=== PATIENT | male | born 1980 | race Caucasian/White ===

== ENCOUNTER 2019-12-27 11:40 | Emergency (ER) | payer OTHER, SELFPAY ==
--- NOTE | 2019-12-27 11:53 | ED.URI ---
HPI - URI/Sore Throat General Chief Complaint: Upper Respiratory Infection Stated Complaint: cough/fever Time Seen by Provider: 12/27/19 11:54 Source: patient and RN notes reviewed History of Present Illness HPI Narrative: Patient is a 39-year-old male that presents the urgent care with complaints of sore throat, nonproductive cough, fever, chills, body aches, fatigue. Patient states that it started yesterday and he was at his PCPs office for an annual visit. Patient states that did not test him for strep or flu but treated him with amoxicillin. Patient states he is only taken 1 dose but feels worse this morning. Patient is also been taking [id number] Advil. No other acute complaints. No acute distress noted. Patient read the plan of care. Related Data Home Medications Medication Instructions Recorded Confirmed atorvastatin 20 mg DAILY 12/27/19 12/27/19 citalopram 20 mg DAILY 12/27/19 12/27/19 hydrochlorothiazide 25 mg DAILY 12/27/19 12/27/19 losartan 100 mg DAILY 12/27/19 12/27/19 Allergies Allergy/AdvReac Type Severity Reaction Status Date / Time No Known Allergies Allergy Verified 12/27/19 12:00 Review of Systems Review of Systems: Narrative: CONSTITUTIONAL: Reports of fever, chills, sweats and fatigue EYES: Denies visual changes, redness, or discharge. ENT: Reports of rhinorrhea, sore throat CARDIOVASCULAR: Denies chest pain, palpitations, or edema. RESPIRATORY: Reports a mild nonproductive cough GASTROINTESTINAL: Denies abdominal pain, nausea, vomiting, or diarrhea. GENITOURINARY: Denies dysuria or hematuria. SKIN: Denies rash or itching. MUSCULOSKELETAL: Denies back pain, joint pain; reports of body aches NEUROLOGIC: Denies headache, numbness, or weakness. All other systems reviewed are negative, except as documented in HPI. PMFSH Social History Social History Gender identity (if verbalized by the patient): Male Comments At the time of my signature, I reviewed and agree with the nursing past medical, surgical, social, and family history. There is no relevant family history pertinent to the patient complaint. Exam Narrative: Exam Narrative: GENERAL: This is a well-nourished, well-developed patient, appears fatigued HEAD: normocephalic, atraumatic. EYES: PERRL. Sclera clear/white. Vision is grossly intact. EARS: External ears normal, auditory canals clear and without drainage, TMs normal without perforation. Hearing grossly intact. NOSE: External nose normal with no obvious nasal discharge, bilateral erythemic nares with clear rhinorrhea THROAT: Mucous membranes moist, posterior pharynx clear. Moderate postnasal drainage NECK: Neck supple, non-tender without lymphadenopathy CARDIOVASCULAR: Regular rate and rhythm without murmurs, gallops, or rubs. RESPIRATORY: Clear to auscultation. Breath sounds equal bilaterally. No wheezes, rales, or rhonchi. SKIN: warm, intact with no suspicious lesions or rash, good texture and turgor. NEURO: awake, alert, and oriented to person, place and time. There were no obvious focal neurologic abnormalities. EXTREMITIES: No clubbing, cyanosis, or edema. Course Vital Signs Vital signs: Vital Signs Temperature 101.4 F H 12/27/19 11:58 Pulse Rate 111 H 12/27/19 11:58 Respiratory Rate 20 12/27/19 11:58 Blood Pressure 160/93 H 12/27/19 11:58 Pulse Oximetry 98 12/27/19 11:58 Temperature 101.4 F H 12/27/19 11:58 Pulse Rate 111 H 12/27/19 11:58 Respiratory Rate 20 12/27/19 11:58 Blood Pressure 160/93 H 12/27/19 11:58 Pulse Oximetry 98 12/27/19 11:58 Reviewed?patient is informed that they may have pre-hypertension or hypertension based on a blood pressure reading in the department. I recommend the patient call the primary care provider listed on their discharge instructions or a physician of their choice this week to arrange follow-up for further evaluation of possible pre-hypertension or hypertension. MDM - URI/Sore Throat MDM Narrative
[2019-12-27 11:58] VITALS: BP 160/93; PULSE 111; RESP 20; TEMP 38.6; O2SAT 98
== END 2019-12-27 12:12 | disposition home or self-care (01) ==
PROVIDERS: Emergency Provider Nurse Practitioner Family
DX: J11.1 Influenza due to unidentified influenza virus with other respiratory manifestations (principal); I10 Essential (primary) hypertension; E78.00 Pure hypercholesterolemia, unspecified; I25.10 Atherosclerotic heart disease of native coronary artery without angina pectoris
CPT/HCPCS: 87081; 87804; 87880; 99203; G0463

== ENCOUNTER 2024-12-21 01:04 | Emergency (ER) | payer OTHER, SELFPAY ==
[2024-12-21] VITALS (20 sets, daily range): BP systolic 128–167; BP diastolic 83–94; PULSE 103–132; RESP 17–30; TEMP 36.5; O2SAT 97–100
[2024-12-21 01:26] LABS: Basophils Absolute Auto 0.1 K/mm3 (0.0-0.1); Eosinophils Absolute Auto 0.5 K/mm3 (0-0.3); Eosinophils Percent Auto 3.9 % (0-4.4); Hematocrit 41.4 % (42.0-52.0); Hemoglobin 14.1 g/dL (14.0-18.0); Immature Granulocyte Absolute 0.07 K/mm3 (0.00-0.031); Immature Granulocyte Percent A 0.6 % (0-0.5); Lymphocytes Absolute Auto 4.55 K/mm3 (0.9-3.2); Lymphocytes Percent Auto 38.2 % (18.3-44.2); Mean Corpuscular HGB Conc 34.1 g/dl (32-36); Mean Corpuscular Hemoglobin 25.7 pg (26-34); Mean Corpuscular Volume 75.5 fl (80-100); Mean Platelet Volume 9.9 fl (7.4-10.4); Monocytes Absolute Auto 1.1 K/mm3 (0.1-0.6); Monocytes Percent Auto 9.5 % (2.6-8.5); Neutrophils Absolute Auto 5.6 K/mm3 (1.3-6.7); Neutrophils Percent Auto 46.8 % (45.5-73.1); Platelet Count Result 353 k/mm3 (150-375); Red Blood Count 5.48 M/mm3 (4.6-6.20); Red Cell Distribution Width 13.5 % (11.5-14.5); White Blood Count 11.9 K/mm3 (4.5-10.0)
[2024-12-21 01:33] LABS: Alanine Aminotransferase 19 U/L (6-50); Albumin Level 4.3 g/dL (3.5-5.1); Alkaline Phosphatase 78 U/L (38-126); Anion Gap 12 mmol/L (4-12); Aspartate Amino Transferase 23 U/L (17-59); Bilirubin,Total 0.6 mg/dL (0.2-1.3); Blood Urea Nitrogen 25 mg/dL (9-20); Calcium 8.9 mg/dL (8.4-10.2); Carbon Dioxide 26 mmol/L (22-30); Chloride 98 mmol/L (98-107); Estimated CRCL calculation 94 ml/min; Estimated Glomerular Filt Rate > 60; Glucose 167 mg/dL (65-110); Potassium 2.6 mmol/L (3.4-5.0); Sodium 136 mmol/L (137-145)
[2024-12-21 01:49] LABS: INR 0.9; Prothrombin Time 12.3 Seconds (11.1-14.7)
[2024-12-21] MEDS: POTASSIUM CHLORIDE 20 MEQ PACKET (FOR LIQUID) 40 MEQ PO (02:00)
[2024-12-21] MEDS: SODIUM CHLORIDE 0.9% IV 1,000 ML 999 ML IV CONT ×2 (02:00→03:23)
[2024-12-21 03:33] LABS: Add Urine Microscopic? YES; Appearance Urine Clear (Clear); Bacteria Urine None Seen /hpf; Bilirubin Urine Negative (Negative); Blood Urine Negative (Negative); Color Urine Yellow (Yellow); Glucose Urine UA Negative (Negative); Ketones Urine Trace mg/dL (Negative); Leukocyte Esterase Ur Negative LEU/UL (Negative); Nitrate Urine Negative (Negative); Non Pathogenic Casts 0-2; Protein Urine 1+ mg/dL (Negative); Squamous Epithelial Cell Urine None Seen /hpf (Few); WBC Urine 0-5 /hpf (0-3)
[2024-12-21 03:45] LABS: Amphetamine Screen Urine Negative (Negative); Barbiturate Screen Urine Negative (Negative); Benzodiazepines Screen Urine Negative (Negative); Cannabinoid Screen Urine Positive (Negative); Cocaine Screen Urine Negative (Negative); Methadone Screen Urine Negative (Negative); Opiate Screen Urine Negative (Negative); Phencyclidine Screen Urine Negative (Negative)
--- NOTE | 2024-12-21 03:51 | ED.GENADULT ---
HPI - General Adult General Chief complaint: Altered Mental Status Stated complaint: Intermittent LOC Time Seen by Provider: 12/21/24 01:28 History of Present Illness HPI narrative: Patient is a 44-year-old male who presents to the emergency department this evening via EMS with the complaint of not feeling right. Patient states that he was getting ready to go to sleep but then did not feel well so he decided to come to the ED for further evaluation. Patient is unable to provide me with any specific symptoms, he just states that he started Wellbutrin 3 weeks ago and every day he does feels different. Patient admits that he has been vaping using the marijuana vape and did use it this evening. He is answering all my questions appropriately and following all of my commands, alert and oriented x3. Related Data Home Medications ?Medication ?Instructions ?Recorded ?Confirmed ?Last Taken ?Type esomeprazole magnesium 20 mg 20 mg PO DAILY 11/29/23 12/01/24 Unknown History capsule,delayed release (Nexium 24HR) Allergies Allergy/AdvReac Type Severity Reaction Status Date / Time No Known Allergies Allergy Verified 12/01/24 14:06 Review of Systems Review of Systems: All systems are reviewed and are negative unless stated otherwise in the HPI. 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 HEENT: PERRL, no rhinorrhea, no post nasal drip, oropharynx clear. Neck: Trachea midline, no JVD, no lymphadenopathy. Cardiovascular: Regular rate and rhythm, no murmurs, rubs or gallops, no peripheral edema. Respiratory: Clear to auscultation bilaterally, no tachypnea, no wheezing, no rhonchi, no rubs, no respiratory distress. Abdomen: Soft, nontender, nondistended, no rebound, no guarding, no peritoneal signs. Musculoskeletal: No joint swelling or deformity, normal muscle tone. Skin: No rashes or petechia, no signs of infection. Psychiatric: Alert and oriented, normal behavior and judgment for situation. Neurological: Alert and oriented to person, place, and time. Follows all commands. No focal deficits, speech is clear and fluent. Course Vital Signs Vital signs: Vital Signs Temperature 97.7 F 12/21/24 01:01 Pulse Rate 130 H 12/21/24 01:01 Respiratory Rate 25 H 12/21/24 01:01 Blood Pressure 167/86 H 12/21/24 01:01 Pulse Oximetry 97 12/21/24 01:01 Oxygen Delivery Room Air 12/21/24 01:01 Temperature 97.7 F 12/21/24 01:01 Pulse Rate 115 H 12/21/24 03:16 Respiratory Rate 19 12/21/24 03:16 Blood Pressure 128/84 12/21/24 03:15 Pulse Oximetry 99 12/21/24 03:16 Oxygen Delivery Room Air 12/21/24 01:55 Medical Decision Making [facility] Narrative Medical decision making narrative: The patient was evaluated by myself in the emergency department. History is obtained from patient who is an independent historian and physical exam was performed. External medical records were reviewed at this time. IV was established and pertinent tests were ordered. Patient was administered 2 L IV fluid bolus with normal saline. EKG was obtained which revealed sinus tachycardia rate of 130 beats per minute, evidence of acute ischemia within limitation of heart rate. EKG was independently interpreted by me and is currently pending official cardiology read. Laboratory results obtained revealing potassium of 2.6 otherwise unremarkable. At this time, patient was administered a total of 60 mEq of oral potassium. Repeat basic metabolic panel at this time revealed a potassium of 4.3. Imaging studies obtained included CXR which was independently interpreted by me revealing no acute cardiopulmonary process, which is pending final radiology interpretation. Differential diagnosis considerations include acute viral syndrome, substance use disorder, dehydration, electrolyte derangements, infectious process such as pneumonia/UTI. Comorbidities impacting this visit include marijuana use. I have evaluated and discussed social determinants of health with the patient that could potentially impact subsequent diagnosis and treatment plans. On repeat assessment of the patient, reevaluation revealed that the patient is doing well and is in no acute distress. Patient symptoms have improved since he arrived to our emergency department. Repeat vital signs were all reviewed and noted to be stable with repeat heart rate of 105 beats per minute. Differential diagnosis and treatment plan were discussed with the patient at bedside. Patient agrees with discussion and after shared medical decision making agrees with discharge. All questions were answered to the patient's satisfaction. Patient will follow up with his PCP in 3-5 days. Patient was provided with strict return precautions and instructed to return to the emergency department if any new or worsening symptoms develop. The patient was discharged in stable condition. Vital Signs Vital Signs: Vital Signs Temperature 97.7 F 12/21/24 01:01 Pulse Rate 130 H 12/21/24 01:01 Respiratory Rate 25 H 12/21/24 01:01 Blood Pressure 167/86 H 12/21/24 01:01 Pulse Oximetry 97 12/21/24 01:01 Oxygen Delivery Room Air 12/21/24 01:01 Temperature 97.7 F 12/21/24 01:01 Pulse Rate 115 H 12/21/24 03:16 Respiratory Rate 19 12/21/24 03:16 Blood Pressure 128/84 12/21/24 03:15 Pulse Oximetry 99 12/21/24 03:16 Oxygen Delivery Room Air 12/21/24 01:55 Lab Data 12/21/24 01:12 12/21/24 04:47 Labs: Lab Results 12/21/24 12/21/24 12/21/24 Range/Units 01:12 03:16 03:18 WBC 11.9 H (4.5-10.0) K/mm3 RBC 5.48 (4.6-6.20) M/mm3 Hgb 14.1 (14.0-18.0) g/dL Hct 41.4 L (42.0-52.0) % MCV 75.5 L (80-100) fl MCH 25.7 L (26-34) pg MCHC 34.1 (32-36) g/dl RDW 13.5 (11.5-14.5) % Plt Count 353 (150-375) k/mm3 MPV 9.9 (7.4-10.4) fl Immature Gran % (Auto) 0.6 H (0-0.5) % Neut % (Auto) 46.8 (45.5-73.1) % Lymph % (Auto) 38.2 (18.3-44.2) % [place] % (Auto) 9.5 H (2.6-8.5) % Eos % (Auto) 3.9 (0-4.4) % Baso % (Auto) 1.0 (0.2-1.2) % Lymph # (Auto) 4.55 H (0.9-3.2) K/mm3 [place] # (Auto) 1.1 H (0.1-0.6) K/mm3 Eos # (Auto) 0.5 H (0-0.3) K/mm3 Baso # (Auto) 0.1 (0.0-0.1) K/mm3 Abs Immat Gran (auto) 0.07 H (0.00-0.031) K/mm3 Absolute Neuts (auto) 5.6 (1.3-6.7) K/mm3 Absolute Nucleated RBC 0.000 (0.0-0.012) K/mm3 Nucleated RBC % 0.0 (0.0-0.2) % PT 12.3 (11.1-14.7) Seconds INR 0.9 APTT 20.0 L (22.3-36.8) Seconds Sodium 136 L (137-145) mmol/L Potassium 2.6 L* (3.4-5.0) mmol/L Chloride 98 (98-107) mmol/L Carbon Dioxide 26 (22-30) mmol/L Anion Gap 12 (4-12) mmol/L BUN 25 H (9-20) mg/dL Creatinine 0.84 (0.7-1.3) mg/dL Estim Creat Clear Calc 94 ml/min Estimated GFR > 60 (59 - ) Glucose 167 H (65-110) mg/dL Calcium 8.9 (8.4-10.2) mg/dL Magnesium 2.0 (1.6-2.3) mg/dL Total Bilirubin 0.6 (0.2-1.3) mg/dL AST 23 (17-59) U/L ALT 19 (6-50) U/L Alkaline Phosphatase 78 (38-126) U/L Total Protein 7.0 (6.3-8.2) g/dL Albumin 4.3 (3.5-5.1) g/dL Urine Color Yellow (Yellow) Urine Appearance Clear (Clear) Urine pH 6.0 (5.0-9.0) Ur Specific Twilight 1.030 (1.001-1.035) Urine Protein 1+ H (Negative) mg/dL Urine Glucose (UA) Negative (Negative) mg/dL Urine Ketones Trace H (Negative) mg/dL Ur Blood (Man) Negative (Negative) Urine Nitrate Negative (Negative) Urine Bilirubin Negative (Negative) Urine Urobilinogen 1.0 (<2.0) mg/dL Leukocyte Esterase Rfl Negative (Negative) JUANY/UL Urine RBC 3-5 H (0-2) /hpf Urine WBC 0-5 (0-3) /hpf Ur Squamous Epith Cells None seen (Few) /hpf Urine Bacteria None seen /hpf Urine Casts 0-2 Urine Opiates Screen Negative (Negative) Urine Methadone Screen Negative (Negative) Ur Barbiturates Screen Negative (Negative) Ur Phencyclidine Scrn Negative (Negative) Ur Amphetamine Screen Negative (Negative) U Benzodiazepines Scrn Negative (Negative) Urine Cocaine Screen Negative (Negative) U Cannabinoids Screen Positive A (Negative) Influenza A (RT-PCR) Negative (Negative) Influenza B (RT-PCR) Negative (Negative) RSV (RT-PCR) Negative (Negative) SARS-CoV-2 RNA (RT-PCR) Negative (Negative) 12/21/24 Range/Units 04:47 WBC (4.5-10.0) K/mm3 RBC (4.6-6.20) M/mm3 Hgb (14.0-18.0) g/dL Hct (42.0-52.0) % MCV (80-100) fl MCH (26-34) pg MCHC (32-36) g/dl RDW (11.5-14.5) % Plt Count (150-375) k/mm3 MPV (7.4-10.4) fl Immature Gran % (Auto) (0-0.5) % Neut % (Auto) (45.5-73.1) % Lymph % (Auto) (18.3-44.2) % [place] % (Auto) (2.6-8.5) % Eos % (Auto) (0-4.4) % Baso % (Auto) (0.2-1.2) % Lymph # (Auto) (0.9-3.2) K/mm3 [place] # (Auto) (0.1-0.6) K/mm3 Eos # (Auto) (0-0.3) K/mm3 Baso # (Auto) (0.0-0.1) K/mm3 Abs Immat Gran (auto) (0.00-0.031) K/mm3 Absolute Neuts (auto) (1.3-6.7) K/mm3 Absolute Nucleated RBC (0.0-0.012) K/mm3 Nucleated RBC % (0.0-0.2) % PT (11.1-14.7) Seconds INR APTT (22.3-36.8) Seconds Sodium 137 (137-145) mmol/L Potassium 4.3 (3.4-5.0) mmol/L Chloride 105 (98-107) mmol/L Carbon Dioxide 24 (22-30) mmol/L Anion Gap 8 (4-12) mmol/L BUN 21 H (9-20) mg/dL Creatinine 0.81 (0.7-1.3) mg/dL Estim Creat Clear Calc 97 ml/min Estimated GFR > 60 (59 - ) Glucose 105 (65-110) mg/dL Calcium 8.1 L (8.4-10.2) mg/dL Magnesium (1.6-2.3) mg/dL Total Bilirubin (0.2-1.3) mg/dL AST (17-59) U/L ALT (6-50) U/L Alkaline Phosphatase (38-126) U/L Total Protein (6.3-8.2) g/dL Albumin (3.5-5.1) g/dL Urine Color (Yellow) Urine Appearance (Clear) Urine pH (5.0-9.0) Ur Specific Twilight (1.001-1.035) Urine Protein (Negative) mg/dL Urine Glucose (UA) (Negative) mg/dL Urine Ketones (Negative) mg/dL Ur Blood (Man) (Negative) Urine Nitrate (Negative) Urine Bilirubin (Negative) Urine Urobilinogen (<2.0) mg/dL Leukocyte Esterase Rfl (Negative) JUANY/UL Urine RBC (0-2) /hpf Urine WBC (0-3) /hpf Ur Squamous Epith Cells (Few) /hpf Urine Bacteria /hpf Urine Casts Urine Opiates Screen (Negative) Urine Methadone Screen (Negative) Ur Barbiturates Screen (Negative) Ur Phencyclidine Scrn (Negative) Ur Amphetamine Screen (Negative) U Benzodiazepines Scrn (Negative) Urine Cocaine Screen (Negative) U Cannabinoids Screen (Negative) Influenza A (RT-PCR) (Negative) Influenza B (RT-PCR) (Negative) RSV (RT-PCR) (Negative) SARS-CoV-2 RNA (RT-PCR) (Negative) Discharge Plan Discharge Clinical Impression: Dehydration, Substance abuse, Acute hypokalemia, Anxiety Patient Disposition: Home, Self-Care Condition: Improved Instructions: Antibiotic Form, Dehydration (DC), Hypokalemia (ED) Additional Instructions: Please follow-up with your family doctor within the next 3-5 days. Maintain your oral hydration by drinking lots of fluids. Return to the ED if any new or worsening symptoms develop. Patient Language: Icelandic Prescriptions: No Action esomeprazole magnesium [Nexium 24HR] 20 mg capsule,delayed release(DR/EC) 20 mg PO DAILY atorvastatin 20 mg tablet 20 mg PO DAILY Qty: 90 3RF losartan 100 mg tablet 100 mg PO DAILY Qty: 90 3RF bupropion HCl [Wellbutrin XL] 150 mg tablet extended release 24 hr 150 mg PO QAM Qty: 30 1RF escitalopram oxalate 20 mg tablet See Rx Instructions .ROUTE .COMPLEX Qty: 90 1RF Dose Instruction: TAKE ONE TABLET BY MOUTH EVERY DAY Rx Instructions: TAKE ONE TABLET BY MOUTH EVERY DAY hydrochlorothiazide 25 mg tablet See Rx Instructions .ROUTE .COMPLEX Qty: 90 3RF Dose Instruction: TAKE ONE TABLET BY MOUTH EVERY DAY Rx Instructions: TAKE ONE TABLET BY MOUTH EVERY DAY Follow-up/Referrals: Betsy Boyer APRN [Primary Care Provider] - 3 Days Time of Disposition: 05:44
[2024-12-21 04:03] LABS: Influenza A QL RT-PCR Negative (Negative); Influenza B QL RT-PCR Negative (Negative); RSV RNA, RT-PCR Negative (Negative); SARS-CoV-2 RNA PCR Negative (Negative)
[2024-12-21] MEDS: POTASSIUM CHLORIDE 20 MEQ PACKET (FOR LIQUID) PO (04:10)
[2024-12-21 05:14] LABS: Anion Gap 8 mmol/L (4-12); Blood Urea Nitrogen 21 mg/dL (9-20); Calcium 8.1 mg/dL (8.4-10.2); Carbon Dioxide 24 mmol/L (22-30); Chloride 105 mmol/L (98-107); Estimated CRCL calculation 97 ml/min; Estimated Glomerular Filt Rate > 60; Glucose 105 mg/dL (65-110); Potassium 4.3 mmol/L (3.4-5.0); Sodium 137 mmol/L (137-145)
== END 2024-12-21 06:23 | disposition home or self-care (01) ==
PROVIDERS: Emergency Provider Emergency Medicine; PCP Nurse Practitioner Adult Health
DX: E86.0 Dehydration (principal); E87.6 Hypokalemia; F41.9 Anxiety disorder, unspecified; F19.10 Other psychoactive substance abuse, uncomplicated; Z20.822 Contact with and (suspected) exposure to COVID-19; I10 Essential (primary) hypertension; K21.9 Gastro-esophageal reflux disease without esophagitis; Z79.899 Other long term (current) drug therapy; R00.0 Tachycardia, unspecified; R94.31 Abnormal electrocardiogram [ECG] [EKG]
CPT/HCPCS: 36415; 71045; 80048; 80053; 80307; 81001; 83735; 85025; 85610; 85730; 87637; 93005; 96360; 96361; 99284; A9270; J7030

== ENCOUNTER 2025-01-12 15:55 | Outpatient (CLI) | payer OTHER, SELFPAY ==
--- OUTSIDE RECORDS SUMMARY | 2025-01-12 18:16 | XMS_ITS | Clinical Summary ---
Author Organization [address] Address [address] [place] [address] Care Team Providers Care Cash Management Specialist Name Role Phone Narciso Lerma MD Unavailable Betsy Boyer NP Primary Care Provider [phone] Allergies No known active allergies Medications levocetirizine (XYZAL) 5 mg tablet Take 1 tablet (5 mg total) by mouth daily as needed SEASONAL Active atorvastatin (LIPITOR) 20 mg tabletIndicatio ns:hyperlipidem ia Take 1 tablet (20 mg total) by mouth every morning [address] (NexIUM) 20 mg capsule Take 1 capsule (20 mg total) by mouth daily before breakfast Takes for GERD Active hydroCHLOROthia zide (HYDRODIURIL) 25 mg tabletIndicatio ns:hypertension Take 1 tablet (25 mg total) by mouth daily Active losartan (COZAAR) 100 mg tabletIndicatio ns:hypertension Take 1 tablet (100 mg total) by mouth daily 1 Active Eucrisa 2 % ointment Apply 1 application topically as needed (daily prn eczema) 1 Active clobetasoL-emol lient 0.05 % topical foam Apply 1 application topically 2 (two) times a day as needed (eczema) 1 Active escitalopram (LEXAPRO) 20 mg tablet escitalopram 20 mg tablet TAKE ONE TABLET BY MOUTH EVERY DAY Active clobetasoL (TEMOVATE) 0.05 % cream Apply to the affected area as needed. 4 Active Active Problems Problem Noted Date Diagnosed Date Neck mass 02/17/2022 Overview (02/17/2022): Added automatically from request for surgery [id number] Cervical adenopathy 02/17/2022 Overview (02/17/2022): Added automatically from request for surgery [id number] Polyarthritis 01/03/2021 Gastroesophageal reflux disease 09/12/2019 Pure hypercholesterolemia 01/15/2019 Obstructive sleep apnea 03/12/2018 Overview (03/12/2018): Sleep testing completed 03/08/2018. Apnea-hypopnea index 9.8. Non positional findings were present with desaturation to 85%. Essential hypertension 02/26/2018 Generalized anxiety disorder 02/26/2018 BMI 30.0-30.9,adult 02/26/2018 Asthma 06/19/2017 Resolved Problems Problem Noted Date Diagnosed Date Resolved Date Hypertension 03/12/2018 03/12/2018 Fatigue 02/26/2018 02/26/2023 Snoring 02/26/2018 05/17/2018 Witnessed apneic spells 02/26/201804/22 Encounters Date Type Department Care Team Description 12/20/2024 7:45 AM BARROW WORKER HELPER Lab [facility] [address] [place] [id number] from Last 3 Months Surgical History Surgery Date Site/Laterality Comments HERNIA REPAIR infancy WISDOM TOOTH EXTRACTION NECK MASS EXCISION Right Medical History Medical History Date Comments Hypertension High blood pressure Anxiety Reflux esophagitis Neck mass Allergic rhinitis GERD (gastroesophageal reflux disease) Family History Medical History Relation Name Comments Cancer Father Cancer Sister Relation Name Status Comments Father Sister Social History Tobacco Use Types Packs/Day Years Used Date Smoking Tobacco: Never Smokeless Tobacco: Never Alcohol Use Standard Drinks/Week Comments Never 0 (1 standard drink = 0.6 oz pur e alcohol) AUDIT-C Answer Date Recorded Q1: How often do you have a drink containing alc ohol? Never 03/06/2022 Average Number of Drinks Not on file 022 Q3: How often do you have si x or more drinks on one occasion? Never 03/06/2022 Sex and Gender Information Value Date Recorded Sex Assigned at Not on file Legal Sex Male 1:50 AM BARROW WORKER HELPER Gender Identity Not on file Sexual Orientation Not on file Obstetrics History Last Filed Vital Signs Vital Sign Reading Time Taken Comments Blood Pressure 132/88 05/26/2024 3:31 PM CDT Pulse 99 05/26/2024 3:31 PM CDT Temperature 37.1 C (98.7 F) 05/26/2024 3:31 PM CDT Respiratory Rate 16 05/26/2024 3:31 PM CDT Oxygen Saturation 98% 05/26/2024 3:31 PM CDT Inhaled Oxygen Concentration - - Weight 89.1 kg (196 lb 6.4 oz) 05/26/2024 3:31 P M CDT Height 172.7 cm (5' 8 ) 05/26/2024 3:31 PM CDT Body Mass Index 29.86 05/26/2024 3:31 PM CDT Plan of Treatment Health Maintenance Due Date Last Done Comments Colon Cancer Screening-Colonoscopy 1979 Depression Screening 1979 Hepatitis B Screening 1997 Regular Well Visit/Exam 18-64 1997 Pneumococcal vaccine <65 (1 of 2 - PCV) 1998 DTaP/Tdap/Td Vaccine (7 - Td or Tdap) 11/10/2023 11/10/2013, 06/08/1989, 12/22/1983, Additional history exists Covid-19 Vaccine ( season) 2024 09/27/2021, 02/08/2021, 01/18/2021 Influenza Vaccine (#1) 2024 3, 08/02/2021, 07/22/2021, Additional history exists Hepatitis C Screening Completed 01/03/2021 HPV Vaccines Aged Out No longer eligi ble based on patient's age to complete this topic Procedures Procedure Name Priority Date/Time Associated Diagnosis Comments EGFR Routine 12/20/2024 8:06 AM BARROW WORKER HELPER DIFFERENTIAL AUTO Routine 12/20/2024 8:0 6 AM BARROW WORKER HELPER CBC WITH AUTO DIFFERENTIAL Routine 12/20/2024 8:06 AM BARROW WORKER HELPER MAGNESIUM Routine 12/20/2024 8:06 AM BARROW WORKER HELPER TSH Routine 12/20/2024 8:06 AM BARROW WORKER HELPER COMPREHENSIVE METABOLIC PANEL Routine 12/20/2024 8:06 AM BARROW WORKER HELPER LIPID PANEL Routine 12/20/2024 8:06 AM BARROW WORKER HELPER HEPATITIS PANEL, ACUTE Routine 12:28 PM CDT Polyarthritis from Last 3 Months or Most Recently Relevant to Health Maintenance Results * eGFR (12/20/2024 8:06 AM BARROW WORKER HELPER) eGFR >90 >=60 mL/min/1. 73 m2 Comment: Interpretive Data Reference Interval Normal >/= 90 mL/min/1.73m2 Mildly decreased* 60 - 89 mL/min/1.73m2 Mildly to moderately decreased 45 - 59 mL/min/1.73m2 Moderately to severely decreased 30 - 44 mL/min/1.73m2 Severely decreased 15 - 29 mL/min/1.73m2 Kidney Failure < 15 mL/min/1.73m2 *Relative to young adult level Estimated glomerular filtration rate is determined by the 2020 CKD-EPI equation recommended by the National Kidney Foundation (A Unifying Approach to GFR Estimation: Recommendations of the NKF-ASK Task Force on Reassessing the Inclusion of Race in Diagnosing Kidney Disease, JASN 2020). The CKD-EPI equation should not be used for patients with unstable renal function and has not been validated in children and those over 70. Current interpretive data was last reviewed 2021. Testing performed by: [facility], [address] [place] [address]., [address] Blood 12/20/2024 8:06 AM BARROW WORKER HELPER 12/20/2024 8:33 AM BARROW WORKER HELPER us Betsy Boyer NP LAB BLOOD ORDERABLES Final Res ult [facility] [address] [facility] Department [place] [address] * Differential, auto (12/20/2024 8:06 AM BARROW WORKER HELPER) Neutrophil abs 3.0 1.5 - 6.5 K/cumm Comment:Testing performed by : [address] [address] Imm gran abs 0.0 0.0 - 0.1 K/cumm [facility] Comment:Testing performed by : [address] [address] Lymphocyte abs 1.3 0.8 - 3.3 K/cumm [facility] Comment:Testing performed by : [address] [address] Monocyte abs 0.4 0.2 - 0.8 K/cumm [facility] Comment:Testing performed by : [address] [address] Eosinophil abs 0.2 0.0 - 0.5 K/cumm [facility] Comment:Testing performed by : [address] [address] Basophil abs 0.1 0.0 - 0.1 K/cumm [facility] Comment:Testing performed by : [address] [address] Neutrophil pct 60.3 % [facility] Comment: Interpretive Data Percent cell count reference ranges are not reported, since discordance with absolute values may lead to misinterpretation of CBC data. Current Interpretive Data was last revised on 2018. Testing performed by: [address] [address] Imm gran pct 0.4 % [facility] Comment: Interpretive Data Percent cell count reference ranges are not reported, since discordance with absolute values may lead to misinterpretation of CBC data. Current Interpretive Data was last revised on 2018. Testing performed by: [address] [address] Lymphocyte pct 26.2 % [facility] Comment: Interpretive Data Percent cell count reference ranges are not reported, since discordance with absolute values may lead to misinterpretation of CBC data. Current Interpretive Data was last revised on 2018. Testing performed by: [address] [address] Monocyte pct 7.9 % [facility] Comment: Interpretive Data Percent cell count reference ranges are not reported, since discordance with absolute values may lead to misinterpretation of CBC data. Current Interpretive Data was last revised on 2018. Testing performed by: [address] [address] Eosinophil pct 4.2 % [facility] Comment: Interpretive Data Percent cell count reference ranges are not reported, since discordance with absolute values may lead to misinterpretation of CBC data. Current Interpretive Data was last revised on 2018. Testing performed by: [address] [address] Basophil pct 1.0 % [facility] Comment: Interpretive Data Percent cell count reference ranges are not reported, since discordance with absolute values may lead to misinterpretation of CBC data. Current Interpretive Data was last revised on 2018. Testing performed by: [address] [address] Blood 12/20/2024 8:06 AM BARROW WORKER HELPER 12/20/2024 8:33 AM BARROW WORKER HELPER us Betsy Boyer NP LAB BLOOD ORDERABLES Final Res ult [facility] [address] [facility] Department [place] [address] * (ABNORMAL) CBC with auto differential (12/20/2024 8:06 AM BARROW WORKER HELPER) WBC 5.0 3.8 - 9.9 K/cumm Comment:Testing performed by : [address] [address] Hgb 13.8 13.0 - 17.5 g/dL [facility] Comment:Testing performed by : [address] [address] Hct 40.2 38.9 - 50.3 % [facility] Comment:Testing performed by : [address] [address] Plt 214 150 - 400 K/cumm [facility] Comment:Testing performed by : [address] [address] MPV 9.8 9.1 - 12.3 fL [facility] Comment:Testing performed by : [address] [address] RBC 5.31 4.30 - 5.80 M/cumm [facility] Comment:Testing performed by : [address] [address] MCV 75.7(L) 81.3 - 96.4 fL [facility] Comment:Testing performed by : [address] [address] MCH 26.0(L) 27.1 - 33.3 pg [facility] Comment:Testing performed by : [address] [address] MCHC 34.3 32.3 - 35.7 g/dL [facility] Comment:Testing performed by : [address] [address] RDW CV 13.9 11.1 - 14.9 % [facility] Comment:Testing performed by : [address] [address] RDW SD 37.2 35.7 - 48.1 fL [facility] Comment:Testing performed by : [address] [address] NRBC abs 0.00 0.00 - 0.01 K/cumm [facility] Comment:Testing performed by : [address] [address] Blood 12/20/2024 8:06 AM BARROW WORKER HELPER 12/20/2024 8:33 AM BARROW WORKER HELPER us Betsy Boyer NP LAB BLOOD ORDERABLES Final Res ult [facility] [address] [facility] Department [place] [address] * TSH (12/20/2024 8:06 AM BARROW WORKER HELPER) Thyroid Stimulating Hormone 1.09 0.30 - 4.20 mcIUnit/mL Comment:Testing performed by : [address] [address] Blood 12/20/2024 8:06 AM BARROW WORKER HELPER 12/20/2024 8:33 AM BARROW WORKER HELPER Betsy Vincent SAFETY OFFICER LAB BLOOD ORDERABLES Final Res ult Performing Organization Address City/[facility]/ZIP Co de Phone Number [address] [employer] [place] [address] * Magnesium (12/20/2024 8:06 AM BARROW WORKER HELPER) Magnesium 2.2 1.4 - 2.5 mg/dL Comment:Testing performed by : [address] [address] Blood 12/20/2024 8:06 AM BARROW WORKER HELPER 12/20/2024 8:33 AM BARROW WORKER HELPER Betsyjose r Boyer SAFETY OFFICER LAB BLOOD ORDERABLES Final Res ult Performing Organization Address City[facility] Co de Phone Number [address] [address] * Lipid panel (12/20/2024 8:06 AM BARROW WORKER HELPER) Cholesterol 140 30 - 199 mg/dL Comment: Interpretive Data Ages < or = 19 years Acceptable: <170 mg/dL Borderline high: 170-199 mg/dL High: >or= 200 mg/dL Ages > or = 20 years Desirable: <200 mg/dL Borderline high: 200-239 mg/dL High: >or= 240 mg/dL Literature References: 1. Expert Panel on Integrated Guidelines for Cardiovascular Health and Risk Reduction in Children and Adolescents. Pediatrics 2011;128:S213 2. NCEP Expert Panel. Circulation 2004;110:227 Current Interpretive Data was last revised on 2018. Testing performed by: [address] [address] Triglycerides 109 <=149 mg/dL [facility] Comment: Interpretive Data Ages < or = 9 years Acceptable: <75 mg/dL Borderline high: 75-99 mg/dL High: >or= 100 mg/dL Ages 10 to 20 years Acceptable: <90 mg/dL Borderline high: 90-129 mg/dL High: >or= 130 mg/dL Ages > or = 20 years Desirable: <150 mg/dL Borderline high: 150-199 mg/dL High: 200-499 mg/dL Very high: >or= 499 mg/dL Literature References: 1. Expert Panel on Integrated Guidelines for Cardiovascular Health and Risk Reduction in Children and Adolescents. Pediatrics 2011;128:S213 2. NCEP Expert Panel. Circulation 2004;110:227 Current Interpretive Data was last revised on 2018. Testing performed by: [address] [address] HDL 42 >=40 mg/dL [facility] Comment: Interpretive Data Ages < or = 19 years Acceptable: >45 mg/dL Borderline low: 40-45 mg/dL Low: <40 mg/dL Ages > or = 20 years Desirable: >or= 60 mg/dL Low: <40 mg/dL Literature References: 1. Expert Panel on Integrated Guidelines for Cardiovascular Health and Risk Reduction in Children and Adolescents. Pediatrics 2011;128:S213 2. NCEP Expert Panel. Circulation 2004;110:227 Current Interpretive Data was last revised on 2018. Testing performed by: [address] [address] LDL, calculated 78 <=129 mg/dL [facility] Comment: Interpretive Data Ages < or = 19 years Acceptable: <110 mg/dL Borderline high: 110-129 mg/dL High: >or= 130 mg/dL Ages > or = 20 years Optimal: <100 mg/dL Near optimal: 100-129 mg/dL Borderline high: 130-159 mg/dL High: >160 mg/dL Calculated using the Kevon LDL-C estimating equation. This equation was implemented on 2024. Prior to this date LDL-C was estimated using the Friedewald equation. Literature References: 1. Expert Panel on Integrated Guidelines for Cardiovascular Health and Risk Reduction in Children and Adolescents. Pediatrics 2011;128:S213 2. NCEP Expert Panel. Circulation 2004;110:227 3. Lund M et al. CRAIG Cardiol. 2019February 19;5(5):540-548. doi: 10.1001/jamacardio.2020.0013 Current Interpretive Data was last revised on 2024. Testing performed by: [address] [address] Non-HDL Cholesterol 98 mg/dL [facility] Comment: Interpretive Data Ages < or = 19 years Acceptable: <120 mg/dL Borderline high: 120-144 mg/dL High: >145 mg/dL Ages > or = 20 years When triglycerides are >200 mg/dL, Non-HDL cholesterol is a secondary target of therapy with treatment goals that are 30 mg/dL greater than the LDL cholesterol target. Literature References: 1. Expert Panel on Integrated Guidelines for Cardiovascular Health and Risk Reduction in Children and Adolescents. Pediatrics 2011;128:S213 2. NCEP Expert Panel. Circulation 2004;110:227 Current Interpretive Data was last revised on 2018. Testing performed by: [address] [address] Chol/HDL ratio 3 [facility] Comment:Testing performed by : [address] [address] Blood 12/20/2024 8:06 AM BARROW WORKER HELPER 12/20/2024 8:33 AM BARROW WORKER HELPER us Betsy Boyer NP LAB BLOOD ORDERABLES Final Res ult [facility] [address] [facility] Department of Laboratories [place], [place] [id number] * Comprehensive metabolic panel (12/20/2024 8:06 AM BARROW WORKER HELPER) Sodium 139 135 - 145 mmol/L Comment:Testing performed by : [address] [address] Potassium, pl 3.4 3.3 - 4.9 mmol/L [facility] Comment:Testing performed by : [address] [address] Chloride 100 97 - 110 mmol/L [facility] Comment:Testing performed by : [address] [address] CO2 29 22 - 32 mmol/L [facility] Comment:Testing performed by : [address] [address] Anion gap 10 2 - 15 mmol/L [facility] Comment:Testing performed by : [address] [address] BUN 22 6 - 25 mg/dL [facility] Comment:Testing performed by : [address] [address] Creatinine 0.80 0.80 - 1.30 mg/dL [facility] Comment:Testing performed by : [address] [address] Glucose 99 70 - 199 mg/dL [facility] Comment: Interpretive Data Fasting glucose >/= 126 mg/dl is diagnostic for diabetes. Fasting is defined as no caloric intake for at least 8 hours. Fasting glucose between 100 mg/dl to 125 mg/dl is diagnostic of prediabetes. In a patient with classic symptoms of hyperglycemia or hyperglycemic crisis, a random glucose >/= 200 mg/dl is diagnostic for diabetes. In the absence of unequivocal hyperglycemia, results should be confirmed by repeat testing. The classification and Diagnosis of Diabetes Diabetes Care 2021; 46: S19-S40. Current interpretive data was last revised 2022. Testing performed by: [address] [address] Calcium 9.2 8.5 - 10.3 mg/dL [facility] Comment:Testing performed by : [address] [address] Bilirubin, total 0.5 0.1 - 1.2 mg/dL [facility] Comment:Testing performed by : [address] [address] Protein, pl 7.0 6.5 - 8.5 g/dL [facility] Comment:Testing performed by : [address] [address] Albumin 4.4 3.5 - 5.0 g/dL [facility] Comment:Testing performed by : [address] [address] Alk phos 84 40 - 130 Units/L [facility] Comment:Testing performed by : [facility], [address] [place] [address]., [address] ALT 12 7 - 55 Units/L [facility] Comment:Testing performed by : [address] [address] AST 12 10 - 50 Units/L [facility] Comment:Testing performed by : [address] [address] Blood 12/20/2024 8:06 AM BARROW WORKER HELPER 12/20/2024 8:33 AM BARROW WORKER HELPER us Betsy Boyer NP LAB BLOOD ORDERABLES Final Res ult [facility] [address] [facility] Department [place] [address] * Hepatitis panel, acute (01/03/2021 12:28 PM CDT) Hep A IgM Nonreactive Nonreactive [facility] Comment: Interpretive Data: If Hep A IgM Ab is reported as Equivocal, a new sample should be drawn in two weeks for testing. Current interpretive data was last revised on 20. Hep B core IgM Nonreactive Nonreactive [facility] Comment: Interpretive Data If HepB Core IgM Ab is reported as Equivocal, a new sample should be drawn in two weeks for testing. Current interpretive data was last revised on 20. Hep C Ab Nonreactive Nonreactive [facility] Comment:Antibodies to HCV no t detected. Does NOT exclude the possibility of recent exposure to HCV. HepBsAg Nonreactive Nonreactive [facility] Blood specimen (specimen) 01/03/2021 12:28 PM CDT 01/03/2021 3:45 PM CDT Edna Turner MD LAB MICROBIOLOGY - GENERAL ORDER SHANA Edited Result - Final [facility] [place] [address] from Last 3 Months or Most Recently Relevant to Health Maintenance Insurance [employer] Address: [facility] [id number] [place] [address] [employer] Address: [facility] [id number] [place] [address] [employer] Address: [address] [place] [address] Care Teams Cash Management Specialist Relationship Specialty Start Date End Date Betsy Boyer NP [address] [place] [address] PCP - General Nurse Practitioner 12/07/23 Narciso Lerma MD [address] [address] Consulting Physician Otolaryngology 03/06/22
--- OUTSIDE RECORDS SUMMARY | 2025-01-12 18:16 | XMS_ITS | Referral Summary ---
Author Organization [address] Address [address] [place] [address] Care Team Providers Care Internal Wholesaler Name Role Phone Narciso Lerma MD Unavailable [phone] Betsy Boyer NP Primary Care Provider [phone] Encounters Date Type Department Care Team Description 12/20/2024 7:45 AM CLINICAL LAW PROFESSOR Lab [facility] [address] [place] [id number] from Last 3 Months Allergies No known active allergies Medications levocetirizine [...] (02/17/2022): Added automatically from request for surgery [id number] Cervical adenopathy 02/17/2022 Overview (02/17/2022): Added automatically from request for surgery [id number] Polyarthritis 01/03/2021 Gastroesophageal reflux disease 09/12/2019 Pure [...] Snoring 02/26/2018 05/17/2018 Witnessed apneic spells 02/26/201804/22 Social History Tobacco Use Types Packs/Day Years [...] on file Legal Sex Male 1:50 AM CLINICAL LAW PROFESSOR Gender Identity Not on file Sexual Orientation Not on file Last Filed Vital Signs Vital Sign Reading [...] 05/26/2024 3:31 PM CDT Plan of Treatment Not on file Procedures Procedure Name Priority Date/Time Associated Diagnosis Comments EGFR Routine 12/20/2024 8:06 AM CLINICAL LAW PROFESSOR DIFFERENTIAL AUTO Routine 12/20/2024 8:0 6 AM CLINICAL LAW PROFESSOR CBC WITH AUTO DIFFERENTIAL Routine 12/20/2024 8:06 AM CLINICAL LAW PROFESSOR MAGNESIUM Routine 12/20/2024 8:06 AM CLINICAL LAW PROFESSOR TSH Routine 12/20/2024 8:06 AM CLINICAL LAW PROFESSOR COMPREHENSIVE METABOLIC PANEL Routine 12/20/2024 8:06 AM CLINICAL LAW PROFESSOR LIPID PANEL Routine 12/20/2024 8:06 AM CLINICAL LAW PROFESSOR HEPATITIS PANEL, ACUTE Routine 12:28 PM CDT Polyarthritis from Last 3 Months or Most Recently Relevant to Health Maintenance Results * eGFR (12/20/2024 8:06 AM CLINICAL LAW PROFESSOR) eGFR >90 >=60 mL/min/1. 73 m2 Comment: [...] was last reviewed 2021. Testing performed by: [address] [address] Blood 12/20/2024 8:06 AM CLINICAL LAW PROFESSOR 12/20/2024 8:33 AM CLINICAL LAW PROFESSOR us Betsy Boyer NP LAB BLOOD ORDERABLES Final Res ult [facility]ON [facility] Department [place] [address] * Differential, auto (12/20/2024 8:06 AM CLINICAL LAW PROFESSOR) Neutrophil abs 3.0 1.5 - 6.5 K/cumm Comment:Testing performed by : [address] [address] Imm gran abs 0.0 0.0 - 0.1 K/cumm HSON Comment:Testing performed by : [address] [address] Lymphocyte abs 1.3 0.8 - 3.3 K/cumm SHON Comment:Testing performed by : [address] [address] Monocyte abs 0.4 0.2 - 0.8 K/cumm SHON Comment:Testing performed by : [address] [address] Eosinophil abs 0.2 0.0 - 0.5 K/cumm SHON Comment:Testing performed by : [address] [address] Basophil abs 0.1 0.0 - 0.1 K/cumm SHON Comment:Testing performed by : [address] [address] Neutrophil pct 60.3 % SHON Comment: Interpretive Data Percent cell count reference ranges are not reported, since discordance with absolute values may lead to misinterpretation of CBC data. Current Interpretive Data was last revised on 2018. Testing performed by: [address] [address] Imm gran pct 0.4 % SHON Comment: Interpretive Data Percent cell count reference ranges are not reported, since discordance with absolute values may lead to misinterpretation of CBC data. Current Interpretive Data was last revised on 2018. Testing performed by: [address] [address] Lymphocyte pct 26.2 % SHON Comment: Interpretive Data Percent cell count reference ranges are not reported, since discordance with absolute values may lead to misinterpretation of CBC data. Current Interpretive Data was last revised on 2018. Testing performed by: [address] [address] Monocyte pct 7.9 % SHON Comment: Interpretive Data Percent cell count reference ranges are not reported, since discordance with absolute values may lead to misinterpretation of CBC data. Current Interpretive Data was last revised on 2018. Testing performed by: [address] [address] Eosinophil pct 4.2 % SHON Comment: Interpretive Data Percent cell count reference ranges are not reported, since discordance with absolute values may lead to misinterpretation of CBC data. Current Interpretive Data was last revised on 2018. Testing performed by: [address] [address] Basophil pct 1.0 % SHON Comment: Interpretive Data Percent cell count reference ranges are not reported, since discordance with absolute values may lead to misinterpretation of CBC data. Current Interpretive Data was last revised on 2018. Testing performed by: [address] [address] Blood 12/20/2024 8:06 AM CLINICAL LAW PROFESSOR 12/20/2024 8:33 AM CLINICAL LAW PROFESSOR us Betsy Boyer NP LAB BLOOD ORDERABLES Final Res ult SHON [address] [facility] Department [place] [address] * (ABNORMAL) CBC with auto differential (12/20/2024 8:06 AM CLINICAL LAW PROFESSOR) WBC 5.0 3.8 - 9.9 K/cumm Comment:Testing performed by : [address] [address] Hgb 13.8 13.0 - 17.5 g/dL SHON Comment:Testing performed by : [address] [address] Hct 40.2 38.9 - 50.3 % SHON Comment:Testing performed by : [address] [address] Plt 214 150 - 400 K/cumm SHON Comment:Testing performed by : [address] [address] MPV 9.8 9.1 - 12.3 fL SHON Comment:Testing performed by : [address] [address] RBC 5.31 4.30 - 5.80 M/cumm SHON TURNER Comment:Testing performed by : [address] [address] MCV 75.7(L) 81.3 - 96.4 fL SHON Comment:Testing performed by : [address] [address] MCH 26.0(L) 27.1 - 33.3 pg SHON TURNER Comment:Testing performed by : [address] [address] MCHC 34.3 32.3 - 35.7 g/dL SHON TURNER Comment:Testing performed by : [address] [address] RDW CV 13.9 11.1 - 14.9 % SHON Comment:Testing performed by : [address] [address] RDW SD 37.2 35.7 - 48.1 fL SHON TURNER Comment:Testing performed by : [address] [address] NRBC abs 0.00 0.00 - 0.01 K/cumm SHON TURNER Comment:Testing performed by : [address] [address] Blood 12/20/2024 8:06 AM CLINICAL LAW PROFESSOR 12/20/2024 8:33 AM CLINICAL LAW PROFESSOR us Betsy Vincent WELL SHOOTER LAB BLOOD ORDERABLES Final Res ult Performing Organization Address [facility] Co de Phone Number SHON [address] [place] [address] * TSH (12/20/2024 8:06 AM CLINICAL LAW PROFESSOR) Thyroid Stimulating Hormone 1.09 0.30 - 4.20 mcIUnit/mL Comment:Testing performed by : [address], [address] Blood 12/20/2024 8:06 AM CLINICAL LAW PROFESSOR 12/20/2024 8:33 AM CLINICAL LAW PROFESSOR Betsy Vincent WELL SHOOTER LAB BLOOD ORDERABLES Final Res ult Performing Organization Address [facility] Co de Phone Number MARI[address] [place] [address] * Magnesium (12/20/2024 8:06 AM CLINICAL LAW PROFESSOR) Magnesium 2.2 1.4 - 2.5 mg/dL Comment:Testing performed by : [address] [address] Blood 12/20/2024 8:06 AM CLINICAL LAW PROFESSOR 12/20/2024 8:33 AM CLINICAL LAW PROFESSOR us Betsy Vincent WELL SHOOTER LAB BLOOD ORDERABLES Final Res ult Performing Organization Address [facility]/ZIP Co de Phone Number SHON [address] [facility] Department [place] [address] * Lipid panel (12/20/2024 8:06 AM CLINICAL LAW PROFESSOR) Cholesterol 140 30 - 199 mg/dL Comment: [...] last revised on 2018. Testing performed by: [address] [address] Triglycerides 109 <=149 mg/dL SHON Comment: Interpretive [...] last revised on 2018. Testing performed by: [address] [address] HDL 42 >=40 mg/dL SHON Comment: Interpretive [...] last revised on 2018. Testing performed by: [address] [address] LDL, calculated 78 <=129 mg/dL SHON Comment: [...] 2. NCEP Expert Panel. Circulation 2004;110:227 3. Kevon La et al. CRAIG Cardiol. 2020 February 19;5(5):540-548. doi: 10.1001/jamacardio.2020.0013 Current Interpretive Data was last revised on 2024. Testing performed by: [address] [address] Non-HDL Cholesterol 98 mg/dL SHON Comment: Interpretive Data Ages < [...] last revised on 2018. Testing performed by: [address] [address] Chol/HDL ratio 3 SHON Comment:Testing performed by : [address] [address] Blood 12/20/2024 8:06 AM CLINICAL LAW PROFESSOR 12/20/2024 8:33 AM CLINICAL LAW PROFESSOR us Betsy Boyer NP LAB BLOOD ORDERABLES Final Res ult [facility] [address] [facility] Department [place] [address] * Comprehensive metabolic panel (12/20/2024 8:06 AM CLINICAL LAW PROFESSOR) Sodium 139 135 - 145 mmol/L Comment:Testing performed by : [address] [address] Potassium, pl 3.4 3.3 - 4.9 mmol/L SHON Comment:Testing performed by : [address] [address] Chloride 100 97 - 110 mmol/L SHON Comment:Testing performed by : [address] [address] CO2 29 22 - 32 mmol/L SHON Comment:Testing performed by : [address] [address] Anion gap 10 2 - 15 mmol/L SHON Comment:Testing performed by : [address] [address] BUN 22 6 - 25 mg/dL SHON Comment:Testing performed by : [address] [address] Creatinine 0.80 0.80 - 1.30 mg/dL SHON Comment:Testing performed by : [address] [address] Glucose 99 70 - 199 mg/dL SHON Comment: Interpretive Data Fasting glucose >/= 126 [...] was last revised 2022. Testing performed by: [address] [address] Calcium 9.2 8.5 - 10.3 mg/dL SHON Comment:Testing performed by : [address] [address] Bilirubin, total 0.5 0.1 - 1.2 mg/dL SHON Comment:Testing performed by : [address] [address] Protein, pl 7.0 6.5 - 8.5 g/dL SHON Comment:Testing performed by : [address] [address] Albumin 4.4 3.5 - 5.0 g/dL SHON Comment:Testing performed by : [address] [address] Alk phos 84 40 - 130 Units/L [facility] Comment:Testing performed by : [address] [address] ALT 12 7 - 55 Units/L [facility] Comment:Testing performed by : [address] [address] AST 12 10 - 50 Units/L [facility] Comment:Testing performed by : [address] [address] Blood 12/20/2024 8:06 AM CLINICAL LAW PROFESSOR 12/20/2024 8:33 AM CLINICAL LAW PROFESSOR us Betsy Boyer NP LAB BLOOD ORDERABLES Final Res ult SHON [address] [facility] Department [place] [address] * Hepatitis panel, acute (01/03/2021 12:28 PM CDT) Hep A IgM Nonreactive Nonreactive [facility] Comment: Interpretive Data: If Hep A IgM Ab is reported as Equivocal, a new sample should be drawn in two weeks for testing. Current interpretive data was last revised on 20. Hep B core IgM Nonreactive Nonreactive [facility] Comment: Interpretive Data If HepB Core IgM Ab is reported as Equivocal, a new sample should be drawn in two weeks for testing. Current interpretive data was last revised on 20. Hep C Ab Nonreactive Nonreactive [facility] Comment:Antibodies to HCV no t detected. Does NOT exclude the possibility of recent exposure to HCV. HepBsAg Nonreactive Nonreactive [facility] Blood specimen (specimen) 01/03/2021 12:28 PM CDT 01/03/2021 3:45 PM CDT Edna Turner MD LAB MICROBIOLOGY - GENERAL ORDER SHANA Edited Result - Final SHON [facility] [place] [address] from Last 3 Months or Most Recently Relevant to Health Maintenance Insurance [facility] [employer] Address: [facility] [address] [place] [address] Care Teams Internal Wholesaler Relationship Specialty Start Date End Date Betsy Boyer NP [address] [place] [id number] PCP - General Nurse Practitioner 12/07/23 Narciso Lerma MD [address] [place] [address] Consulting Physician Otolaryngology 03/06/22
[2025-01-12 20:55] LABS: Anion Gap 10 mmol/L (4-12); Blood Urea Nitrogen 17 mg/dL (9-20); Carbon Dioxide 30 mmol/L (22-30); Chloride 98 mmol/L (98-107); Estimated Glomerular Filt Rate > 60; Glucose 88 mg/dL (65-110); Potassium 3.8 mmol/L (3.4-5.0); Sodium 138 mmol/L (137-145)
== END 2025-01-12 15:56 | disposition home or self-care (01) ==
LOC: ANHBWCLAB 15:56
PROVIDERS: PCP Nurse Practitioner Adult Health; Visit Provider Nurse Practitioner Adult Health
DX: I10 Essential (primary) hypertension (principal)
CPT/HCPCS: 36415; 80048